=== PATIENT | male | born 1980 | race Caucasian/White ===

== ENCOUNTER 2023-01-05 21:14 | Emergency (ER) | payer SELFPAY ==
[~2023-01-05] VITALS: Ht 175.3 cm; Wt 100.0 kg
[2023-01-05 21:21] VITALS: BP 140/70; PULSE 100; RESP 18; TEMP 98.1; O2SAT 98
[2023-01-06] MEDS ORDERED: IBUP-2029 MT (00:50)
== END 2023-01-06 02:28 | disposition home or self-care (01) ==
LOC: ER 21:14
DX: M25.552 Pain in left hip (principal); V49.49XA Driver injured in collision with other motor vehicles in traffic accident, initial encounter; Y93.89 Activity, other specified; Y92.89 Other specified places as the place of occurrence of the external cause; Y99.8 Other external cause status
CPT/HCPCS: 73030; 73501; 99284